=== PATIENT | male | born 1995 | race Caucasian/White ===

== ENCOUNTER 2017-02-21 12:13 | Emergency (ER) | payer OTHER ==
[~2017-02-21] VITALS: Ht 182.8 cm; Wt 104.3 kg
[~2017-02-21 12:13] MED LIST: AMOXICILLIN500 M2 PO; AMOXICILLIN500 MG PO; BACTRIM DS 8001 TA1 PO; LOTRISONE 0.05%1 CRE TP; MEDROL DOSEPAK4 MG PO; MIRALAX POWDER17 G1 PO; MOTRIN800 MG PO; PREDNICOT20 MG PO; PREDNISONE10 MG PO; VISTARIL50 MG PO; ZYRTEC10 MG PO
[2017-02-21 12:17] VITALS: BP 147/76
[2017-02-21] MEDS ORDERED: AUGMENTIN 875-875 MG PO (13:14)
== END 2017-02-21 13:30 | disposition home or self-care (01) ==
LOC: ED 12:13
DX: J02.9 Acute pharyngitis, unspecified (principal); R05 Cough; R09.89 Other specified symptoms and signs involving the circulatory and respiratory systems; R51 Headache; F17.200 Nicotine dependence, unspecified, uncomplicated

== ENCOUNTER 2017-05-09 08:20 | Emergency (ER) | payer OTHER ==
[~2017-05-09] VITALS: Ht 182.8 cm; Wt 99.8 kg
[~2017-05-09 08:20] MED LIST changes: +AUGMENTIN 875-875 MG PO
[2017-05-09 08:23] VITALS: BP 138/80
== END 2017-05-09 09:10 | disposition home or self-care (01) ==
LOC: ED 08:20
DX: J02.0 Streptococcal pharyngitis (principal); M94.0 Chondrocostal junction syndrome [Tietze]; F17.200 Nicotine dependence, unspecified, uncomplicated

== ENCOUNTER 2017-05-11 14:02 | Emergency (ER) | payer OTHER ==
[~2017-05-11] VITALS: Wt 99.8 kg
[2017-05-11 14:17] VITALS: BP 157/84
[2017-05-11 14:40] LABS: BASO % 0.1 % (0.0-1.0); EOS % 0.1 % (1.0-4.0); HEMATOCRIT 38.5 % (42.0-52.0); LYMPH # 1.6 10*3/uL (1.3-4.4); LYMPH % 23.9 % (27.0-41.0); MEAN CELL VOLUME 89.3 fl (80.0-94.0); MEAN CORPUSCULAR HGB 30.2 pg (27.0-31.0); MEAN CORPUSCULAR HGB CONC 33.8 g/dl (33.0-37.0); MEAN PLATELET VOLUME 10.8 fl (9.6-12.3); MONO # 0.6 10*3/uL (0.1-1.0); MONO % 9.3 % (3.0-9.0); NEUT # 4.5 10*3/uL (2.3-7.9); NEUT % 66.5 % (47.0-73.0); PLATELET COUNT AUTOMATED 138 10*3/uL (130-400); RED BLOOD COUNT 4.31 10*6/uL (4.50-5.90); RED CELL DISTRI WIDTH 12.8 % (0-14.5); WHITE BLOOD COUNT 6.8 10*3/uL (4.8-10.8)
[2017-05-11 14:57] LABS: ALBUMIN 3.7 gm/dl (3.1-4.5); ALKALINE PHOSPHATASE 67 U/L (45-117); BILIRUBIN, TOTAL 0.6 mg/dl (0.2-1.0); BUN 9 mg/dl (7-24); CARBON DIOXIDE 31 mmol/L (21-32); CHLORIDE 103 mmol/L (98-107); EST GLOM FILT AFRICAN AMERICAN > 60 ml/min; GLUCOSE 84 mg/dL (65-99); POTASSIUM 3.9 mmol/L (3.5-5.1); SGOT/AST 24 IU/L (3-35); SGPT/ALT 25 U/L (12-78); SODIUM 141 mmol/L (136-145); TOTAL PROTEIN 7.2 gm/dL (6.4-8.2)
[2017-05-11] MEDS ORDERED: CLINDAMYCIN HC300 MG PO (16:12)
[2017-05-11] MEDS ORDERED: ANAPROX DS550 MG PO (16:12)
== END 2017-05-11 16:21 | disposition home or self-care (01) ==
LOC: ED 14:02
PROVIDERS: Physician Assistant
DX: J03.90 Acute tonsillitis, unspecified (principal); F17.200 Nicotine dependence, unspecified, uncomplicated

== ENCOUNTER 2017-07-08 18:45 | Emergency (ER) | payer OTHER ==
[~2017-07-08] VITALS: Ht 182.8 cm; Wt 99.8 kg
[~2017-07-08 18:45] MED LIST changes: +ANAPROX DS550 MG PO; +CLINDAMYCIN HC300 MG PO
[2017-07-08 19:23] VITALS: BP 150/88
[2017-07-08] MEDS ORDERED: AUGMENTIN 875875 MG PO (20:06)
== END 2017-07-08 22:44 | disposition home or self-care (01) ==
LOC: ED 18:45
DX: J02.9 Acute pharyngitis, unspecified (principal); R09.81 Nasal congestion; H92.09 Otalgia, unspecified ear; F17.200 Nicotine dependence, unspecified, uncomplicated

== ENCOUNTER 2017-12-09 20:13 | Emergency (ER) | payer OTHER ==
[~2017-12-09] VITALS: Ht 185.4 cm; Wt 113.4 kg
[~2017-12-09 20:13] MED LIST changes: +AUGMENTIN 875875 MG PO
[2017-12-09 20:24] VITALS: BP 148/90
[2017-12-09] MEDS ORDERED: AUGMENTIN 875875 MG PO (20:52)
[2017-12-09] MEDS ORDERED: NAPROSYN500 MG PO (20:52)
== END 2017-12-09 21:01 | disposition home or self-care (01) ==
LOC: ED 20:13
DX: H66.91 Otitis media, unspecified, right ear (principal); F17.200 Nicotine dependence, unspecified, uncomplicated

== ENCOUNTER 2018-06-01 12:00 | Emergency (ER) | payer SELFPAY ==
[~2018-06-01] VITALS: Ht 185.4 cm; Wt 113.4 kg
[2018-06-01 12:00] VITALS: BP 136/81
[~2018-06-01 12:00] MED LIST changes: +NAPROSYN500 MG PO
[2018-06-01] MEDS ORDERED: IBUPROFEN600 MG PO (13:56)
== END 2018-06-01 14:03 | disposition home or self-care (01) ==
LOC: ED 12:00
DX: S60.221A Contusion of right hand, initial encounter (principal); V86.59XA Driver of other special all-terrain or other off-road motor vehicle injured in nontraffic accident, initial encounter; Y93.89 Activity, other specified; Y92.89 Other specified places as the place of occurrence of the external cause; Y99.8 Other external cause status

== ENCOUNTER 2019-04-07 09:17 | Emergency (ER) | payer SELFPAY ==
[~2019-04-07] VITALS: Wt 113.4 kg
[~2019-04-07 09:17] MED LIST changes: +IBUPROFEN600 MG PO
[2019-04-07 09:19] VITALS: BP 130/84
[2019-04-07] MEDS ORDERED: ROBAXIN500 M1 PO (11:49)
[2019-04-07] MEDS ORDERED: NAPROSYN500 MG PO (11:49)
== END 2019-04-07 12:00 | disposition home or self-care (01) ==
LOC: ED 09:17
DX: S29.011A Strain of muscle and tendon of front wall of thorax, initial encounter (principal); X58.XXXA Exposure to other specified factors, initial encounter; Y93.89 Activity, other specified; Y92.89 Other specified places as the place of occurrence of the external cause; Y99.8 Other external cause status

== ENCOUNTER 2021-09-30 18:56 | Emergency (ER) | payer SELFPAY ==
[~2021-09-30] VITALS: Ht 185.4 cm; Wt 115.2 kg
[~2021-09-30 18:56] MED LIST changes: +ROBAXIN500 M1 PO
[2021-09-30 19:01] VITALS: BP 154/78
[2021-09-30 19:24] LABS: BASO % 0.4 % (0.0-1.0); EOS # 0.2 10*3/uL (0.0-0.4); EOS % 2.3 % (1.0-4.0); HEMATOCRIT 41.9 % (42.0-52.0); LYMPH # 2.3 10*3/uL (1.3-4.4); LYMPH % 28.6 % (27.0-41.0); MEAN CELL VOLUME 89.7 fl (80.0-94.0); MEAN CORPUSCULAR HGB CONC 33.4 g/dl (33.0-37.0); MEAN PLATELET VOLUME 10.7 fl (9.6-12.3); MONO # 0.7 10*3/uL (0.1-1.0); MONO % 8.5 % (3.0-9.0); NEUT # 4.7 10*3/uL (2.3-7.9); NEUT % 59.8 % (47.0-73.0); PLATELET COUNT AUTOMATED 201 10*3/uL (130-400); RED BLOOD COUNT 4.67 10*6/uL (4.50-5.90); RED CELL DISTRI WIDTH 11.8 % (0-14.5); WHITE BLOOD COUNT 7.9 10*3/uL (4.8-10.8)
[2021-09-30 19:44] LABS: ALBUMIN 3.5 gm/dl (3.1-4.5); ALKALINE PHOSPHATASE 76 U/L (45-117); BUN 13 mg/dl (7-24); CHLORIDE 109 mmol/L (98-107); CREATININE 0.81 mg/dL (0.70-1.30); POTASSIUM 4.7 mmol/L (3.5-5.1); SGOT/AST 34 IU/L (3-35); SGPT/ALT 53 U/L (12-78); SODIUM 142 mmol/L (136-145); TOTAL PROTEIN 7.5 gm/dL (6.4-8.2)
[2021-09-30] MEDS ORDERED: CIPRODEX 0.3%-7.5 ML OT (20:30)
[2021-09-30] MEDS ORDERED: AUGMENTIN 875875 MG PO (20:30)
[2021-09-30] MEDS ORDERED: NAPROSYN500 MG PO (20:30)
== END 2021-09-30 20:36 | disposition home or self-care (01) ==
LOC: ED 18:56
PROVIDERS: Emergency Medicine
DX: J03.90 Acute tonsillitis, unspecified (principal); H60.92 Unspecified otitis externa, left ear

== ENCOUNTER 2024-11-06 15:53 | Emergency (ER) | payer BC ==
[~2024-11-06 15:53] MED LIST changes: +CIPRODEX 0.3%-7.5 ML OT
[2024-11-06 16:15] VITALS: BP 148/95
[2024-11-06] MEDS ORDERED: AMOX-CLAV 875-1 EACH PO (17:04)
[2024-11-06] MEDS ORDERED: Amoxicillin/Clavulanate Pota 875 MG TAB PO ONE (17:05)
== END 2024-11-06 17:29 | disposition home or self-care (01) ==
LOC: ED 15:53
DX: J02.9 Acute pharyngitis, unspecified (principal); Z98.890 Other specified postprocedural states

== ENCOUNTER 2025-05-06 09:47 | Emergency (ER) | payer BC ==
[~2025-05-06] VITALS: Ht 185.4 cm; Wt 126.1 kg
[~2025-05-06 09:47] MED LIST changes: +AMOX-CLAV 875-1 EACH PO
[2025-05-06 09:56] VITALS: BP 139/72
[2025-05-06] MEDS ORDERED: Dexamethasone Sodium Phospha 20 MG/5 ML VIAL IM ONE (10:10)
[2025-05-06] MEDS ORDERED: HYDROXYZINE HCL25 MG PO (10:12)
[2025-05-06] MEDS ORDERED: PREDNISONE20 M1 PO (10:12)
[2025-05-06] MEDS ORDERED: CORTISONE28 GM T (10:12)
== END 2025-05-06 10:15 | disposition home or self-care (01) ==
LOC: ED 09:47
DX: L23.7 Allergic contact dermatitis due to plants, except food (principal); Z79.899 Other long term (current) drug therapy; Z98.890 Other specified postprocedural states